=== PATIENT | female | born 1955 | race Caucasian/White ===

== ENCOUNTER 2019-01-04 11:45 | Inpatient (IN) | payer OTHER ==
[~2019-01-04] VITALS: Ht 175.3 cm; Wt 97.5 kg
[2019-01-04] MEDS: ATORVASTATIN 40 MG TAB PO SCH (00:26)
[2019-01-04 14:06] LABS: BILIRUBIN,URINE NEGATIVE (NEGATIVE); CLARITY,URINE SL CLOUDY (CLEAR); COLOR,URINE YELLOW (YELLOW); KETONES,URINE 1+ (NEGATIVE); LEUKOCYTE ESTERASE ,URINE SMALL (NEGATIVE); NITRITE,URINE NEGATIVE (NEGATIVE); PROTEIN,URINE DIPSTICK TRACE (NEGATIVE); URINE UROBILINOGEN 0.2 mg/dL (0.2 - 1)
[2019-01-04 14:17] LABS: BASOPHILS # (AUTO) 0.1 (0.0-0.1); BASOPHILS % 0.6 % (0.0-1.0); EOSINOPHILS # (AUTO) 0.1 (0.0-0.4); EOSINOPHILS % 0.9 % (0.0-6.0); HEMATOCRIT 43.7 % (34.2-44.1); HEMOGLOBIN 15.1 g/dL (12.0-16.0); LYMPHOCYTES # (AUTO) 4.5 (1.0-3.2); LYMPHOCYTES % 27.6 % (18.0-39.1); MEAN CORPUSCULAR HEMOGLOBIN 29.7 pg (28-32); MEAN CORPUSCULAR HGB CONC 34.6 g/dL (31-35); MEAN CORPUSCULAR VOLUME 85.9 fL (81-99); MONOCYTES # (AUTO) 0.7 (0.2-0.8); MONOCYTES % 4.6 % (4.4-11.3); NEUTROPHILS # (AUTO) 10.6 (2.1-6.9); NEUTROPHILS % 65.3 % (38.7-80.0); PLATELET COUNT 345 x10e3/uL (140-360); RED BLOOD COUNT 5.09 x10e6/uL (3.6-5.1); RED CELL DISTRIBUTION WIDTH 12.7 % (11.7-14.4)
[2019-01-04 14:19] LABS: AMORPHOUS SEDIMENT,URINE FEW (FEW); BACTERIA,URINE MODERATE /HPF; EPITHELIAL CELLS,URINE MODERATE /LPF; RBC,URINE 0-5 /HPF (0-5); TRANSITIONAL EPI CELLS,URINE FEW
[2019-01-04 14:27] LABS: INR 0.86; PROTHROMBIN TIME 12.2 seconds (11.9-14.5)
--- NOTE | 2019-01-04 14:35 | Diagnostic Imaging Report ---
Chest, 1 view, 01/04/2019. History: Chest pain. Comparison: None available. Findings: The cardiomediastinal silhouette and pulmonary vasculature are within normal limits for a portable exam. There is no focal consolidation or pleural effusion. There are no acute osseous or soft tissue abnormalities. Impression: No acute cardiopulmonary abnormality. Signed by: Latrell Nolan on 01/04/2019 2:32 PM
[2019-01-04 14:40] LABS: ALANINE AMINOTRANSFERASE 23 IU/L (0-55); ALBUMIN 3.6 g/dL (3.5-5.0); ALBUMIN/GLOBULIN RATIO 0.8 (0.8-2.0); ALKALINE PHOSPHATASE 145 IU/L (40-150); AMYLASE 35 U/L (25-125); ANION GAP 13.7 mmol/L (8-16); BLOOD UREA NITROGEN 10 mg/dL (7-26); BUN/CREATININE RATIO 13 (6-25); CALCIUM 9.5 mg/dL (8.4-10.2); CARBON DIOXIDE 27 mmol/L (22-29); CHLORIDE 94 mmol/L (98-107); CREATINE KINASE 256 IU/L (29-168); CREATININE, SERUM 0.79 mg/dL (0.57-1.11); EST GLOMERULAR FILTRATION RATE > 60 ML/MIN (60-); GLUCOSE 258 mg/dL (74-118); LIPASE 11 U/L (8-78); MAGNESIUM 1.8 MG/DL (1.3-2.1); POTASSIUM 3.7 mmol/L (3.5-5.1); SODIUM 131 mmol/L (136-145)
[2019-01-04] MEDS ORDERED: DEXTROSE 50% SYRINGE 50 ML IV PRN (15:15)
[2019-01-04] MEDS ORDERED: MORPHINE SULFATE 2 MG/ML SYR 1ML IV PRN (15:15)
[2019-01-04] MEDS ORDERED: NITROGLYCERIN 0.4 MG SUBL SL PRN (15:15)
[2019-01-04] MEDS ORDERED: ONDANSETRON HCL INJ 2MG/ML 2ML 2 MG/ML VIAL IV PRN (15:15)
[2019-01-04] MEDS ORDERED: METOPROLOL TARTRATE INJ 1 MG/ML VIAL IV ONE (15:15)
[2019-01-04] MEDS ORDERED: METOPROLOL TARTRATE 25 MG TAB PO ONE (15:15)
--- OUTSIDE RECORDS SUMMARY | 2019-01-04 15:28 | XMS REPORT ---
[facility] Address Unknown Phone Unavailable Care Team Providers Care Elevator Attendant Name Role Phone Vineet MCKENNA Unavailable Unavailable Problems This patient has no known problems. Allergies, Adverse Reactions, Alerts This patient has no known allergies or adverse reactions. Medications This patient has no known medications. Results Test Description Test Time Test Comments Text Results Atomic Results Result Comments CHEST SINGLE (PORTABLE) 2019-01-04 14:31:00 [place] [id number] Patient Name: TARUN EDWARD MR #: [id number] : 1955 Age/Sex: 63/F Req #: [id number] Adm Physician: Ordered by: MARISSA MONAE TEACHER INSTRUMENTAL Report #: [id number] Location: ER Room/Bed: Procedure: [id number] DX/CHEST SINGLE (PORTABLE) Exam Date: 01/04/19 Exam Time: 1350 REPORT STATUS: Signed Chest, 1 view, 01/04/2019. History: Chest pain. Comparison: None available. Findings: The cardiomediastinal silhouette and pulmonary vasculature are within normal limits for a portable exam. There is no focal consolidation or pleural effusion. There are no acute osseous or soft tissue abnormalities. Impression: No acute cardiopulmonary abnormality. Signed by: Magaly Nolan on 01/04/2019 2:32 PM Dictated By: MAGALY NOLAN MD [id number] Transcribed By: GERARDO on 01/04/19 1432 COPY TO: MARISSA MONAE NP
[2019-01-04] MEDS: ENOXAPARIN SODIUM INJ 100 MG/ML SYR SC SCH (18:12)
[2019-01-04] MEDS: FAMOTIDINE 20 MG/2 ML VIAL IV SCH ×2 (18:13→21:04)
[2019-01-04] MEDS: ASPIRIN 81 MG ENTERIC COATED PO SCH (18:17)
[2019-01-04] MEDS: INSULIN LISPRO 100 UNIT/1 ML 3ML VIAL SQ SCH ×2 (18:19→21:00)
[2019-01-04] MEDS ORDERED: ATORVASTATIN 20 MG TAB PO SCH (19:45)
[2019-01-04 21:01] LABS: CREATINE KINASE MB 16.7 ng/mL (0-5.0)
[2019-01-04 22:30] VITALS: BP 135/108
--- NOTE | 2019-01-04 22:30 | NUR ---
patient received to room 199 via stretcher from the er. bp 135/108 hr 91 rr 20. no c/o chest pain noted but does still have chest heaviness. patient placed on bedside monitor. patient remains on room air with respirations even and unlabored. admit assessment/history complete. call foster placed within reach. patient instructed to call for assistance when needed.
--- NOTE | 2019-01-04 23:18 | Consultation ---
DATE OF CONSULTATION: 01/04/2019 Cardiology Consultation CONSULTING PHYSICIAN: Denny Diaz MD, Interventional Cardiology. REASON FOR CONSULTATION: Tdz-DL-ybtidfclo myocardial infarction. HISTORY OF PRESENT ILLNESS: Ms. Lebron is a 63-year-old woman with history of morbid obesity, dyslipidemia, type 2 diabetes mellitus, and hypertension with no regular outpatient followup or medications, who presents via the emergency department with complaints of 3-day onset of chest discomfort, mild in severity, constant and described as 1 to 2/10 in severity, unaffected by exertion, composition, inspiration, or meals. This morning she also noticed dyspnea on exertion to walking while at work. Symptoms of shortness of breath resolved at rest and did not occur with rest. She denies orthopnea or paroxysmal nocturnal dyspnea. She denies any lightheadedness, palpitations, or syncope. REVIEW OF SYSTEMS: A 12-system review is negative except for as noted above. ALLERGIES: TO RAMIPRIL. PAST MEDICAL HISTORY: As per HPI. SOCIAL HISTORY: No smoking, alcohol, or drugs. FAMILY HISTORY: Noncontributory. PHYSICAL EXAMINATION: VITAL SIGNS: Respiratory rate 16, O2 saturation 100%, pulse 88, blood pressure 120/80. GENERAL: In no acute distress, alert. NECK: No JVD. No carotid bruit. CHEST: Clear to auscultation bilaterally. CARDIOVASCULAR: Regular rate and rhythm, normal S1, S2. No S3 or S4. No murmurs or rubs. ABDOMEN: Soft, nontender, nondistended. Bowel sounds positive. EXTREMITIES: Trace edema. Warm distal extremities. CARDIOVASCULAR MEDICATIONS: Reviewed. Nitroglycerin p.r.n., metoprolol tartrate 25 mg daily q.12 hours, Lovenox 100 mg subcu q.12 hours, aspirin 81 mg daily, Zofran p.r.n., insulin lispro q.a.c. and at bedtime, D50 p.r.n., famotidine 20 mg q.12 hours. STUDIES: Reviewed. Sodium 131, potassium 3.7, chloride 94, bicarbonate 27, BUN 10, creatinine 0.79, glucose 258. White blood cells 16, hemoglobin 15, platelets 345, INR 0.8. AST 32, ALT 23, and alkaline phosphatase 145, total bilirubin 0.7. CK 256, CK-MB 12, troponin I is 4.2. EKG, sinus rhythm with poor R-wave progression in precordial leads. ASSESSMENT: A 63-year-old woman presented with nlt-DL-obheclzkq myocardial infarction. 1. Xbfby-mo-sqqntyo systolic heart failure with left ventricular ejection fraction of 45% to 50% on echocardiogram. Unable to exclude regional wall motion abnormalities on echo due to limited acoustic windows. 2. Diabetes mellitus. 3. Hypertension. 4. Dyslipidemia. RECOMMENDATIONS: Initiated medical therapy for zrc-WI-tfyihplei myocardial infarction including antiplatelet therapy, statin, Lovenox. Keep on telemetry with O2 saturation continuous monitoring. Discussed at length the indications, alternatives, risks and benefits for coronary angiography and possible intervention. We will plan early next week as cath schedule allows. Should any emergent change in condition, can reassess earlier time then. Optimize diabetes care and initiate further discussions regarding preventive therapy. MD ELDA Isbell/ZOFIA /[id number]
[2019-01-05] VITALS (9 sets, daily range): BP systolic 107–153; BP diastolic 68–90
[2019-01-05] MEDS: ENOXAPARIN SODIUM INJ 100 MG/ML SYR SC SCH ×2 (02:37→15:11)
--- NOTE | 2019-01-05 03:50 | NUR ---
patient oob to bathroom by self. patient voids without difficulty. patient denies pain at this time. patient unable to rest on hospital bed. patient states, " This bed is terrible and i just can't sleep on it. " patient to the recline to sleep at this time.
[2019-01-05 05:38] LABS: BASOPHILS # (AUTO) 0.1 (0.0-0.1); BASOPHILS % 0.6 % (0.0-1.0); EOSINOPHILS # (AUTO) 0.1 (0.0-0.4); EOSINOPHILS % 0.6 % (0.0-6.0); HEMATOCRIT 45.9 % (34.2-44.1); HEMOGLOBIN 15.9 g/dL (12.0-16.0); LYMPHOCYTES # (AUTO) 4.3 (1.0-3.2); LYMPHOCYTES % 25.4 % (18.0-39.1); MEAN CORPUSCULAR HEMOGLOBIN 29.9 pg (28-32); MEAN CORPUSCULAR HGB CONC 34.6 g/dL (31-35); MEAN CORPUSCULAR VOLUME 86.3 fL (81-99); MONOCYTES # (AUTO) 1.2 (0.2-0.8); MONOCYTES % 6.8 % (4.4-11.3); NEUTROPHILS # (AUTO) 11.2 (2.1-6.9); PLATELET COUNT 339 x10e3/uL (140-360); RED BLOOD COUNT 5.32 x10e6/uL (3.6-5.1); RED CELL DISTRIBUTION WIDTH 12.8 % (11.7-14.4)
[2019-01-05 05:58] LABS: ALANINE AMINOTRANSFERASE 24 IU/L (0-55); ALBUMIN 3.5 g/dL (3.5-5.0); ALBUMIN/GLOBULIN RATIO 0.8 (0.8-2.0); ALKALINE PHOSPHATASE 145 IU/L (40-150); ANION GAP 19.3 mmol/L (8-16); BLOOD UREA NITROGEN 11 mg/dL (7-26); BUN/CREATININE RATIO 13 (6-25); CALCIUM 10.2 mg/dL (8.4-10.2); CARBON DIOXIDE 24 mmol/L (22-29); CHLORIDE 96 mmol/L (98-107); CHOL/HDL RATIO 9.2 (3.0-3.6); CHOLESTEROL 304 MD/DL (0-199); CREATININE, SERUM 0.85 mg/dL (0.57-1.11); EST GLOMERULAR FILTRATION RATE > 60 ML/MIN (60-); GLUCOSE 359 mg/dL (74-118); HDL CHOLESTEROL 33 MG/DL (40-60); POTASSIUM 4.3 mmol/L (3.5-5.1); SODIUM 135 mmol/L (136-145); TRIGLYCERIDES 893 MG/DL (0-149)
[2019-01-05 06:16] LABS: CREATINE KINASE MB 10.2 ng/mL (0-5.0)
--- NOTE | 2019-01-05 06:30 | NUR ---
patient remains oob to recliner. bedside monitor remains off per patient. no c/o pain noted at this time.
[2019-01-05] MEDS: INSULIN LISPRO 100 UNIT/1 ML 3ML VIAL SQ SCH ×4 (08:30→20:48)
[2019-01-05] MEDS: FAMOTIDINE 20 MG/2 ML VIAL IV SCH (08:42)
[2019-01-05] MEDS: ASPIRIN 81 MG ENTERIC COATED PO SCH (08:42)
[2019-01-05] MEDS: METOPROLOL TARTRATE 25 MG TAB PO SCH ×2 (08:43→20:47)
--- NOTE | 2019-01-05 11:10 | NUR ---
MD HAIR INTO SEE PT, DISCUSSED POC
--- NOTE | 2019-01-05 12:08 | NUR ---
TOLERATING PO, DENIES ANY PAIN AT THIS TIME, VISITING WITH FAMILY AT BEDSIDE
--- NOTE | 2019-01-05 14:30 | NUR ---
MD LEONARD INTO SEE PT, DISCUSSED POC
--- NOTE | 2019-01-05 16:57 | Progress Note ---
DATE: 01/05/2019 Cardiology Progress Note. SUBJECTIVE: She denies any chest pain or shortness of breath. OBJECTIVE: VITAL SIGNS: Temperature 98.1, heart rate 92, respiratory rate 18, blood pressure 122/76, O2 saturation 98%, BMI of 31.7. GENERAL: In no acute distress, alert. NECK: No JVD. CHEST: Clear to auscultation. CARDIOVASCULAR: Regular rate and rhythm. Normal S1, S2. No S3, no S4. No murmurs or rubs. ABDOMEN: Soft, nontender. Bowel sounds positive. EXTREMITIES: Trace edema. Warm distal extremities. CARDIOVASCULAR MEDICATIONS: Reviewed, aspirin 81 mg daily, atorvastatin 80 mg at bedtime, metoprolol tartrate 25 mg q.12 hours. STUDIES: Reviewed. Sodium 135, potassium 4.3, chloride 96, bicarbonate 24, BUN 11, creatinine 0.8, glucose 359. White blood cells 16.9, hemoglobin 15.9, platelets 239. INR 0.8. AST 37, ALT 24, alkaline phosphatase 145. ASSESSMENT: A 63-year-old woman with avf-XG-eywdmusen myocardial infarction. 1. Acute on chronic systolic heart failure. 2. Uncontrolled diabetes mellitus. 3. Dyslipidemia. 4. Hypertension. RECOMMENDATIONS: Discussed with patient at length plan for coronary angiography and possible intervention early next week. Continue current cardiovascular medications and optimize diabetes control. MD AnglinV/ZOFIA /[id number]
--- NOTE | 2019-01-05 17:50 | NUR ---
SHOWER SUPPLIES SAT UP FOR PT, CALL STRING IN PLACE, PT VERBALIZED UNDERSTANDING HOW TO USE IF NEEDED
[2019-01-05] MEDS ORDERED: ACETAMINOPHEN 325 MG TAB PO PRN (18:45)
[2019-01-05] MEDS: ATORVASTATIN 40 MG TAB PO SCH (20:47)
[2019-01-05] MEDS: TEMAZEPAM 15 MG CAP PO SCH (20:47)
[2019-01-06] MEDS: ENOXAPARIN SODIUM INJ 100 MG/ML SYR SC SCH ×2 (02:49→16:00)
[2019-01-06 04:11] VITALS: BP 115/73
[2019-01-06 07:00] VITALS: BP 112/72
--- NOTE | 2019-01-06 07:33 | NUR ---
Report given to oncoming KATRINA Lira.
[2019-01-06] MEDS: ASPIRIN 81 MG ENTERIC COATED PO SCH (08:29)
[2019-01-06] MEDS: METOPROLOL TARTRATE 25 MG TAB PO SCH ×2 (08:29→21:08)
[2019-01-06] MEDS: INSULIN LISPRO 100 UNIT/1 ML 3ML VIAL SQ SCH ×4 (08:38→21:00)
[2019-01-06 08:49] VITALS: BP 112/72
[2019-01-06 11:00] VITALS: BP 109/70
[2019-01-06 15:30] VITALS: BP 114/59
[2019-01-06] MEDS: METFORMIN HCL 500 MG TAB PO SCH (16:10)
--- NOTE | 2019-01-06 18:45 | NUR ---
Walking rounds and report received from KATRINA Lira. Patient is awake, alert and able to make needs known. She is sitting up in recliner, denies any CP or SOB at this time. POC discussed. She was instructed to call for assistance as needed and verbalized understanding. Call foster within reach.
[2019-01-06 19:15] VITALS: BP 116/69
[2019-01-06] MEDS: TEMAZEPAM 15 MG CAP PO SCH (21:08)
[2019-01-06] MEDS: ATORVASTATIN 40 MG TAB PO SCH (21:08)
[2019-01-07] VITALS (8 sets, daily range): BP systolic 106–124; BP diastolic 63–87
[2019-01-07] MEDS: ENOXAPARIN SODIUM INJ 100 MG/ML SYR SC SCH ×2 (03:58→15:51)
[2019-01-07] MEDS: ASPIRIN 81 MG ENTERIC COATED PO SCH (09:01)
[2019-01-07] MEDS: INSULIN LISPRO 100 UNIT/1 ML 3ML VIAL SQ SCH ×4 (09:01→21:00)
[2019-01-07] MEDS: METOPROLOL TARTRATE 25 MG TAB PO SCH ×2 (09:01→21:53)
[2019-01-07] MEDS: METFORMIN HCL 500 MG TAB PO SCH ×2 (09:01→16:24)
--- NOTE | 2019-01-07 11:41 | Progress Note ---
DATE: 01/07/2019 Cardiology Progress Note. SUBJECTIVE: Denies any chest pain. Does get dyspnea on exertion to walking to the restroom, but no shortness of breath at rest. OBJECTIVE: VITAL SIGNS: Temperature 96.2, heart rate 99, respiratory rate 20, blood pressure 115/87, and O2 saturation 97%. GENERAL: No acute distress. Alert. NECK: No JVD. CHEST: Clear to auscultation. CARDIOVASCULAR: Regular rate and rhythm. Normal S1, S2. No S3, no S4. ABDOMEN: Soft, nontender. Bowel sounds positive. EXTREMITIES: No edema. CARDIOVASCULAR MEDICATIONS: Reviewed. Atorvastatin 80 mg at bedtime, metoprolol tartrate 25 mg every 12 hours, Lovenox 100 mg subcu q.12 hours, and aspirin 81 mg daily. LABORATORY DATA: Studies reviewed. Sodium 135, potassium 4.3, chloride 96, bicarbonate 24, BUN 11, creatinine 0.85, and glucose 359. White blood cells 16.9, hemoglobin 15.9, and platelets 239. INR 0.8. AST 37, ALT 24, alkaline phosphatase 145, uncontrolled mixed dyslipidemia. ASSESSMENT: 1. Non-ST elevation myocardial infarction. 2. Acute systolic heart failure. 3. Mixed dyslipidemia, uncontrolled. 4. Diabetes mellitus, uncontrolled. 5. Morbid obesity with BMI of 31.7. 6. Hypertension. RECOMMENDATIONS: 1. Continue current cardiovascular medications. 2. Has been scheduled for coronary angiography and possible intervention tomorrow at 01:00 p.m. Hold Lovenox after tonight's dose. Start hydration in a.m. tomorrow. Okay to receive early light breakfast. N.p.o. after this tomorrow. Denny Diaz MD AFV/MODL /[id number]
--- NOTE | 2019-01-07 19:10 | NUR ---
Walking rounds done. Patient up in chair without any complaints. POC discussed. Patient is aware she will be NPO after midnight. Call foster within reach. Will continue to monitor.
--- NOTE | 2019-01-07 19:15 | NUR ---
per Dr. Le hold am dose of lovenox, oncoming nurse informed
[2019-01-07] MEDS: ATORVASTATIN 40 MG TAB PO SCH (21:53)
[2019-01-07] MEDS: TEMAZEPAM 15 MG CAP PO SCH (21:53)
[2019-01-08] VITALS (9 sets, daily range): BP systolic 122–150; BP diastolic 69–89
[2019-01-08] MEDS: SODIUM CHLORIDE 0.9% 1000ML 1,000 ML IV SCH ×4 (04:53→21:00)
--- NOTE | 2019-01-08 05:00 | NUR ---
IV fluids started as ordered prior to heart cath. Patient offered second Hibiclens bath but declined at this time, wants to do later. Call foster within reach.
[2019-01-08 05:24] LABS: BASOPHILS # (AUTO) 0.1 (0.0-0.1); BASOPHILS % 0.7 % (0.0-1.0); EOSINOPHILS # (AUTO) 0.4 (0.0-0.4); EOSINOPHILS % 2.6 % (0.0-6.0); HEMATOCRIT 41.6 % (34.2-44.1); HEMOGLOBIN 13.7 g/dL (12.0-16.0); LYMPHOCYTES # (AUTO) 5.9 (1.0-3.2); MEAN CORPUSCULAR HEMOGLOBIN 29.1 pg (28-32); MEAN CORPUSCULAR HGB CONC 32.9 g/dL (31-35); MEAN CORPUSCULAR VOLUME 88.3 fL (81-99); MONOCYTES % 6.5 % (4.4-11.3); NEUTROPHILS # (AUTO) 7.7 (2.1-6.9); NEUTROPHILS % 50.5 % (38.7-80.0); PLATELET COUNT 340 x10e3/uL (140-360); RED BLOOD COUNT 4.71 x10e6/uL (3.6-5.1)
[2019-01-08 05:39] LABS: INR 0.85; PROTHROMBIN TIME 12.1 seconds (11.9-14.5)
[2019-01-08 05:40] LABS: PARTIAL THROMBOPLASTIN TIME 29.7 seconds (23.8-35.5)
[2019-01-08 05:46] LABS: BLOOD UREA NITROGEN 11 mg/dL (7-26); BUN/CREATININE RATIO 15 (6-25); CALCIUM 9.7 mg/dL (8.4-10.2); CARBON DIOXIDE 24 mmol/L (22-29); CHLORIDE 102 mmol/L (98-107); CREATININE, SERUM 0.73 mg/dL (0.57-1.11); EST GLOMERULAR FILTRATION RATE > 60 ML/MIN (60-); GLUCOSE 195 mg/dL (74-118); SODIUM 137 mmol/L (136-145)
[2019-01-08] MEDS: INSULIN LISPRO 100 UNIT/1 ML 3ML VIAL SQ SCH ×4 (07:30→20:50)
[2019-01-08 07:57] LABS: PLATELET ESTIMATE ADEQUATE
[2019-01-08] MEDS: ASPIRIN 81 MG ENTERIC COATED PO SCH (08:54)
[2019-01-08] MEDS: METOPROLOL TARTRATE 25 MG TAB PO SCH ×2 (08:54→20:49)
[2019-01-08] MEDS ORDERED: ONDANSETRON HCL 4 MG ORAL DISINTEGRATING TAB PO PRN (12:15)
[2019-01-08] MEDS ORDERED: MIDAZOLAM HCL 2 MG/2 ML VIAL ONE (12:38)
[2019-01-08] MEDS ORDERED: LIDOCAINE HCL 2% LOCAL 20 ML VIAL ONE (12:39)
[2019-01-08] MEDS ORDERED: HEPARIN SOD/SOD CHLORIDE 2,000 ML ONE (12:39)
[2019-01-08] MEDS ORDERED: SODIUM CHLORIDE 0.9% 1000ML 1,000 ML ONE (12:39)
[2019-01-08] MEDS ORDERED: IOPAMIDOL 370 MG/ML 200 ML INFUS..BTL INJ ONE (12:39)
[2019-01-08] MEDS ORDERED: FENTANYL CITRATE/PF 100MCG/2 ML INJ ONE (12:39)
--- NOTE | 2019-01-08 13:55 | NUR ---
pt off unit for procedure
--- NOTE | 2019-01-08 14:34 | NUR ---
pt returned. stable. preparing for trans to [place] for procedure.
--- NOTE | 2019-01-08 16:38 | NUR ---
ORDERS TO INITIATE [place]SFER [place] FOR CABG CHOICE LETTER SIGNED FOR [facility] CALLED TRANSFER CENTER AND INITIATED TRANSFER PH [phone] MOT INITIATED AND PLACED ON CHART NURSE KOTA UPDATED ON STATUS
[2019-01-08] MEDS: ATORVASTATIN 40 MG TAB PO SCH (20:49)
[2019-01-08] MEDS: TEMAZEPAM 15 MG CAP PO SCH (20:49)
--- NOTE | 2019-01-08 22:26 | Progress Note ---
DATE: 01/08/2019 Cardiology Progress Note SUBJECTIVE: Denies any chest pain or shortness of breath. OBJECTIVE: VITAL SIGNS: Temperature 98.6, heart rate 83, respiratory rate 18, blood pressure 134/73, O2 saturation 98%. BMI 31. GENERAL: In no acute distress, alert. NECK: No JVD. CHEST: Clear to auscultation. CARDIOVASCULAR: Regular rate and rhythm. Normal S1 and S2. No S3 or S4. ABDOMEN: Soft, nontender. Bowel sounds positive. EXTREMITIES: No cyanosis, clubbing, or edema. CARDIOVASCULAR MEDICATIONS: Reviewed. Aspirin 81 mg daily, metoprolol tartrate 25 mg every 12 hours, atorvastatin 80 mg at bedtime, nitroglycerin p.r.n. LABORATORY DATA: Studies reviewed. Sodium 137, potassium 4, chloride 102, bicarbonate 24, BUN 11, creatinine 0.73, glucose 195. White blood cells 15.1, hemoglobin 13.7, and platelets 340. INR 0.8, PT 12.1, PTT 29.7. AST 37, ALT 24, alkaline phosphatase 145, total bilirubin 0.8. ASSESSMENT: 1. A 63-year-old woman, presents with ayk-BY-ewqkbysjh myocardial infarction. Coronary angiography noted severe 3-vessel disease with functionally occluded LAD severe stenosis and RCA severe stenosis. On LV-gram, LVEF 30% to 35% with akinesis of the mid apical anterior and apical inferior segment of LV myocardium. 2. Fhtrh-yr-luqiywk systolic heart failure. 3. Diabetes mellitus, uncontrolled. 4. Mixed dyslipidemia, uncontrolled. 5. Morbid obesity. RECOMMENDATIONS: 1. Continue current cardiovascular medications. 2. Discussed with the patient proceeding with transfer or aortic coronary bypass evaluation as the patient states she would not be adhering to year of dual antiplatelet therapy. Therefore, in the setting of diabetes, heart failure, and triple-vessel disease, consideration for bypass is advised. 3. Consider viability for LAD territory versus 3-vessel bypass deferred this patient, surgeon, and team in the hospital after transfer. MD ELDA Isbell/ZOFIA /[id number]
--- NOTE | 2019-01-08 22:31 | Progress Note ---
DATE: 01/07/2019 Cardiology Progress Note SUBJECTIVE: Denies any chest pain. Continues to have dyspnea on exertion with walking to restroom. OBJECTIVE: VITAL SIGNS: Reviewed. Temperature 97.4, heart rate 90, blood pressure 121/70, O2 saturation 100%. GENERAL: No acute distress, alert. NECK: No JVD. CHEST: Clear to auscultation. CARDIOVASCULAR: Regular rate and rhythm. Normal S1 and S2. No S3 or S4. ABDOMEN: Soft. EXTREMITIES: Trace edema. Warm distal extremities. CARDIOVASCULAR MEDICATIONS: Reviewed. Aspirin, metoprolol, atorvastatin. LABORATORY DATA: Studies reviewed. White blood cells 16, hemoglobin 15, and platelets 339. ASSESSMENT: 1. A 63-year-old woman with ozs-AA-kujqrwkhv myocardial infarction, acute heart failure, systolic. 2. Diabetes mellitus, uncontrolled. 3. Dyslipidemia, uncontrolled. 4. Poor compliance with medication and followup. RECOMMENDATION: Plan for coronary angiography, possible intervention on 01/08/2019 in the afternoon. Continue current cardiovascular medications. MD ELDA Isbell/ZOFIA /[id number]
--- NOTE | 2019-01-08 23:31 | Operative Report ---
DATE OF PROCEDURE: 01/08/2019 SURGEON: Denny Diaz MD PROCEDURE INDICATION: Tih-FE-naktzhpsu myocardial infarction. PROCEDURES PERFORMED: 1. Coronary angiography. 2. Left heart catheterization. 3. A 6-Belarusian Angio-Seal closure to right common femoral artery. PROCEDURE COMPLICATIONS: None. ESTIMATED BLOOD LOSS: Less than 15 mL. PROCEDURE SUMMARY: After consent was obtained, the patient was prepped and draped in a sterile fashion. The right femoral site was locally infiltrated with 2% lidocaine and access was obtained with micropuncture. A 6-Belarusian sheath was placed and a JL4 6-Belarusian catheter was used for engagement of left main and angiography in multiple views. A JR4 6-Belarusian catheter was used for engagement of right coronary artery and angiography in multiple views. A pigtail catheter was used to cross the aortic valve for hemodynamic measurements and left ventriculography. The following findings were noted. 1. LV pressure is 146/5 with end-diastolic pressure of 15. 2. Aortic pressure is 145/76. 3. Left ventriculogram reveals severe systolic impairment in left ventricular systolic function with left ventricular ejection fraction of 30% to 35% and akinesis of the mid apical anterior and apical inferior segment of LV myocardium. 4. Left main is large in caliber with luminal irregularities and it gives an LAD and circumflex. 5. The LAD has luminal irregularity in the proximal segment and it gives a diagonal with 50% stenosis and is small in caliber. Mid LAD has 70% and 99% tandem lesions and additional distal LAD 99% area of stenosis is observed after which the LAD seems to be functionally occluded and 100% with WILIAM-1 flow in the proximal segment of the distal LAD. Thereafter, maintained the 0 flow in the distal most LAD. 6. The circumflex has an area of 70% mid stenosis prior to giving an obtuse marginal and the RCA is dominant with 70% mid stenosis. It gives terminal RPDA and RPLV. CONCLUSION: Severe multivessel coronary artery disease in the setting of diabetes mellitus, which is uncontrolled and severe systolic heart failure. RECOMMENDATIONS: The patient clearly states she is not likely to adhere to dual antiplatelet therapy for a year. She came in not taking any medications for her known diabetes or dyslipidemia. Compliance with followup has also been initial. It is, therefore, given these circumstances that systolic heart failure and triple-vessel disease in a diabetic patient, that aortic coronary bypass is the favored approach and this has been discussed with the patient and initiation for transfer for further evaluation also started. MD ELDA Isbell/MODL /[id number]
--- NOTE | 2019-01-08 23:51 | NUR ---
Patient sleeping on recliner chair at this time. Patient refused to go to bed. Patient stated that " I am feeling good in here". V/S WNL. Will continue to monitor.
[2019-01-09] MEDS ORDERED: LOPERAMIDE HCL 2 MG CAP PO ONE (04:45)
--- NOTE | 2019-01-09 05:23 | NUR ---
Patient complained small amount of watery diarrhea more than seven times. Notified to Dr. Antonino MD ordered Imodium 4mg po once at this time. Will continue to monitor.
[2019-01-09 05:35] VITALS: BP 130/91
--- NOTE | 2019-01-09 06:48 | NUR ---
Started new IV on her left hand 22G. Will continue to monitor.
--- NOTE | 2019-01-09 07:11 | NUR ---
Report given to KATRINA castro, walking round done.
[2019-01-09] MEDS: INSULIN LISPRO 100 UNIT/1 ML 3ML VIAL SQ SCH ×3 (08:00→16:57)
--- NOTE | 2019-01-09 08:57 | NUR ---
CM CALLED [facility] SPOKE WITH DIGNA MARTIN [phone] STILL WAITING ON BED STATES HE HAS SPOKE WITH MAK MATOS [facility] THIS AM AND WILL UPDATE HIM WITH BED STATUS
[2019-01-09 09:00] VITALS: BP 130/91
[2019-01-09] MEDS ORDERED: ASPIRIN 325 MG TAB PO SCH (09:00)
--- NOTE | 2019-01-09 09:09 | NUR ---
Called Dr. Hernandez to clarify aspirin dose made aware we had two recieved orders to give 81mg PO and not to hold it.
[2019-01-09] MEDS: ASPIRIN 81 MG ENTERIC COATED PO SCH (09:13)
[2019-01-09 09:30] VITALS: BP 125/72
[2019-01-09] MEDS: METOPROLOL TARTRATE 25 MG TAB PO SCH (09:31)
[2019-01-09 10:00] VITALS: BP 116/73
[2019-01-09] MEDS: SODIUM CHLORIDE 0.9% 1000ML 1,000 ML IV SCH (10:18)
--- NOTE | 2019-01-09 11:31 | NUR ---
Called Dr. Pierson's office left message for nurse to contact me I also left a message for Dr. Ferrer not to come and do consult.
[2019-01-09 12:44] VITALS: BP 112/64
--- NOTE | 2019-01-09 13:44 | NUR ---
Nutrition Screen Note RD Recommendation for Physician (01/09): -Continue current diet per MD. Plan of Care: RD following, monitoring for tolerance and adequacy. Education provided. Nutrition reason for involvement: LOS Primary Diagnose(s): NON-STEMI PMH: morbid obesity, dyslipidemia, type 2 diabetes mellitus, and hypertension Ht: 69 in Wt: 215 lb BMI: 31.7 kg/m2 IBW: [address] Assessment: 01/09: 63 YOF admitted for NON-STEMI with PMH listed above. Pt was seen resting in bed within the IMCU. Pt reports that her appetite is okay. Pt denied N/V, but the nurse stated the pt had diarrhea this morning and was given Imodium. Pt denied chewing/swallowing issues as well as any food allergies. Pt was educated on the low Na and DM diet and given educational handout. Chart reviewed. Labs and meds reviewed. Plan is for a transfer to the [facility] once a bed is available. POC GM: 212. Will continue to monitor. Current Diet: Cardiac ADA Malnutrition Evaluation (01/09) The patient does not meet criteria for a specified degree of malnutrition at this time. Will re-evaluate at follow-up as appropriate. Diet Education Needs Assessment: Diet education indicated, pt accepted. Learner(s): pt Barriers: none Cultural/Language Modifications: none Readiness: acceptance Method: discussion, handout, teach back Topics: DM and low Na diet Understanding/Compliance: verbalized understanding, anticipate good compliance Nutrition Care Level: Signed: Rae Leone RD, LD
--- NOTE | 2019-01-09 15:35 | Progress Note ---
DATE: 01/09/2019 CONSULTING PHYSICIAN: Denny Diaz with Cardiology. PRIMARY CARE PHYSICIAN: Shelton Gibson with [facility]. CHIEF COMPLAINT: Non-ST MD. SUBJECTIVE: Denies any chest pain, no nausea, vomiting, or shortness of breath. OBJECTIVE: VITAL SIGNS: Temperature is 98.5, pulse is 94, respirations 20, blood pressure 112/64, and pulse ox is 98% on room air. GENERAL: No acute distress. NECK: Supple and midline. LUNGS: Clear to auscultation. HEENT: Normocephalic, atraumatic. CARDIOVASCULAR: Normal rate and rhythm. ABDOMEN: Soft and nontender. EXTREMITIES: Active ROM with no edema. NEUROLOGIC: Alert, awake, and oriented x3. PSYCH: Calm. SKIN: Dry and intact. ASSESSMENT AND PLAN: 1. NSTEMI, status post left heart catheterization on 01/08/2019, noted multiple vessel disease. Recommends CAB at [facility], pending transfer. Continue with aspirin, beta-blockers, and statin, status post Lovenox. 2. Systolic Congestive heart failure, compensated. 3. Hypertriglycerides. Continue statin. 4. Morbid obesity. Discussed lifestyle modifications. 5. Diabetes type 2. Continue with Accu-Chek before meals and at bedtime with sliding scale insulin coverage. 6. Hypertension. Continue beta-blockers. 7. Gastrointestinal and deep venous thrombosis prophylaxis. SCDs as she is pending for a CAB. The plan is to transfer to [facility] when bed available. Dictated by JN Goldberg Dannielle Muñiz MD MY/MODL /[id number] Seen and examined. Agree with the findings and plan as documented by JN Weaver. PREM
--- NOTE | 2019-01-09 16:55 | NUR ---
Patient discharged to hospital [facility].
== END 2019-01-09 17:10 | disposition short-term general hospital (02) | DRG 280 ==
LOC: ER 11:45 → ERHOLD 15:10 → IMCU 22:26 → UNDODISIN 01-09 17:05
PROVIDERS: ADMIT Internal Medicine; ATTEND Internal Medicine
PROC: 4A023N7 Measurement of Cardiac Sampling and Pressure, Left Heart, Percutaneous Approach (ICD-10-PCS; principal; 2019-01-08)
PROC: B2111ZZ Fluoroscopy of Multiple Coronary Arteries using Low Osmolar Contrast (ICD-10-PCS; 2019-01-08)
PROC: B2151ZZ Fluoroscopy of Left Heart using Low Osmolar Contrast (ICD-10-PCS; 2019-01-08)
DX: I21.4 Non-ST elevation (NSTEMI) myocardial infarction (principal); I50.23 Acute on chronic systolic (congestive) heart failure; I11.0 Hypertensive heart disease with heart failure; E11.65 Type 2 diabetes mellitus with hyperglycemia; E78.2 Mixed hyperlipidemia; E66.01 Morbid (severe) obesity due to excess calories; Z68.31 Body mass index [BMI] 31.0-31.9, adult
CPT/HCPCS: 36415; 71045; 80048; 80053; 80061; 81001; 82150; 82550; 82553; 82948; 83690; 83735; 84484; 85025; 85379; 85610; 85730; 93005; 93306; 93458; 96372; 99284; C1760; C1769; J1650; J2001; J2250; J3010; J7030; Q9967